=== PATIENT | male | born 1960 | race Caucasian/White ===

== ENCOUNTER 2016-02-15 13:23 | Day surgery (SDC) | payer BC ==
[~2016-02-15] VITALS: Ht 185.4 cm; Wt 106.5 kg
[2016-02-15 13:58] VITALS: BP 134/77; PULSE 69; TEMP 98.9
[2016-02-15] MEDS ORDERED: FLONASEALLERGY (14:15)
[2016-02-15 16:00] VITALS: BP 134/77; PULSE 58; TEMP 98
[2016-02-15 16:15] VITALS: BP 123/69; PULSE 61
[2016-02-15 16:30] VITALS: BP 127/71; PULSE 67
== END 2016-02-15 17:00 | disposition home or self-care (01) ==
LOC: SDCO 13:23
DX: Z83.71 Family history of colonic polyps (principal)
CPT/HCPCS: OP; J2250; J3010; J7030

== ENCOUNTER → 2018-07-29 | Outpatient (CLI) | payer BC ==
[~2018-07-29] VITALS: Ht 185.4 cm; Wt 101.5 kg
[~2018-07-29] MED LIST: FLONASE NASAL S16 GM NS; FLONASEALLERGY; MULTI VITAMINS1 TAB PO; ULTRAM 50MG TAB50 MG PO
[2018-07-29 08:40] VITALS: BP 138/79; PULSE 62
--- NOTE | 2018-07-29 09:15 | NUR ---
PT IS TAKEN TO LOBBY AND MET UP WITH HIS . THEY LEAVE FOR POV
== END ==
LOC: COL.RAD 07:00
DX: M71.38 Other bursal cyst, other site (principal); M48.061 Spinal stenosis, lumbar region without neurogenic claudication
CPT/HCPCS: J3301

== ENCOUNTER 2018-10-16 16:30 | Outpatient (RCR) | payer BC | END 2018-10-22 10:29 | disposition home or self-care (01) | LOC: WSPT 16:30 | DX: M48.061 Spinal stenosis, lumbar region without neurogenic claudication (principal); M54.16 Radiculopathy, lumbar region; G89.29 Other chronic pain; M85.60 Other cyst of bone, unspecified site; M89.38 Hypertrophy of bone, other site; M79.673 Pain in unspecified foot ==

== ENCOUNTER 2019-04-22 08:30 | Outpatient (RCR) | payer BC | END 2019-07-20 | disposition home or self-care (01) | LOC: WSPT | DX: M54.16 Radiculopathy, lumbar region (principal) ==

== ENCOUNTER 2021-02-24 10:21 | Day surgery (SDC) | payer BC ==
[~2021-02-24] VITALS: Ht 182.9 cm; Wt 103.9 kg
[2021-02-24 11:04] VITALS: BP 111/76; PULSE 67; TEMP 97.7
[2021-02-24 12:20] VITALS: BP 109/79; PULSE 79; TEMP 97.7
--- NOTE | 2021-02-24 12:20 | NUR ---
Back from Colonoscopy. Ambulated from cart to chair with steady gait and standby assist. VSS. bedside. Sprite and blueberry muffin given
[2021-02-24 12:35] VITALS: BP 119/99; PULSE 74; TEMP 97.7
[2021-02-24 12:50] VITALS: BP 110/72; PULSE 70; TEMP 97.7
[2021-02-24 13:00] VITALS: BP 119/69; PULSE 83; TEMP 97.7
--- NOTE | 2021-02-24 13:00 | NUR ---
Dr. Padilla in to see pt. VSS. INT discontinued intact. Discharge instructions given to pt/. Transferred to private car by
== END 2021-02-24 13:14 | disposition home or self-care (01) ==
LOC: SDCO 10:21
DX: Z12.11 Encounter for screening for malignant neoplasm of colon (principal); E78.5 Hyperlipidemia, unspecified; M54.9 Dorsalgia, unspecified; K57.30 Diverticulosis of large intestine without perforation or abscess without bleeding; Z79.899 Other long term (current) drug therapy; Z90.89 Acquired absence of other organs; Z83.71 Family history of colonic polyps
CPT/HCPCS: J2704; J7120